=== PATIENT | female | born 1955 | race African-American/Black ===

== ENCOUNTER 2020-03-27 15:36 | Inpatient (IN) ==
[2020-03-27] MEDS ORDERED: SODIUM CHLORIDE 0.9% 500 ML IV STA (16:54)
[2020-03-27 17:53] LABS: Basophils % 0.7 % (0.0-0.8); Eosinophils # 0.1 10*3/uL (0.0-0.87); Hematocrit 24.8 VOL% (35.7-47.0); Hemoglobin 8.6 GM/DL (12.0-16.0); Lymphocytes # 1.7 10*3/uL (1.4-4.0); Lymphocytes % 56.3 % (21.3-54.2); Mean Corpuscular HGB Conc 34.7 GM/DL (32-36); Mean Corpuscular Volume 96.1 FL (87-102); Mean Platelet Volume 9.9 FL (9.6-12.0); Monocytes % 7.9 % (1.7-12.7); Neutrophils % 33.1 % (38.7-73.9); Platelet Count 104 T/CUMM (130-400); Red Blood Count 2.58 MC/CUMM (3.8-5.5); Red Cell Distribution Width 12.8 % (9.3-17.3)
[2020-03-27 18:20] LABS: Eosinophils 4 % (0-10); Lymphocytes 59 % (20-55); Platelet Estimate Adequate; Poikilocytosis Slight; Segmented Neutrophils 34 % (50-85); Target Cells Slight; Total Cells Counted 100
[2020-03-27 18:36] LABS: Albumin 2.9 G/DL (3.4-5.0); Bilirubin,Total 0.5 MG/DL (0.2-1.0); Calcium 7.7 MG/DL (8.5-10.1); Osmolality,Calculated 293.7 MOS/KG (273-304); Total Protein 6.4 G/DL (6.4-8.3)
[2020-03-27 18:40] LABS: Troponin I < 0.015 NG/ML (0.00-0.045)
[2020-03-27 19:24] LABS: Bilirubin,Urine Negative (Negative); Blood, Urine Negative (Negative); Glucose,Urine (UA) Negative (Negative); Ketones,Urine Negative (Negative); Mucus,Urine Occasional /LPF (Occasional); Nitrite,Urine Negative (Negative); Protein,Urine Negative; Urine Appearance CLEAR (Clear); Urine Color Yellow (Yellow); Urine Specific Gravity 1.009 (1.001-1.035); Urine Urobilinogen < 2.0 EU/DL (0.2-1.0)
[2020-03-27] MEDS ORDERED: GLUCAGON 1 MG VIAL IM PRN (20:24)
[2020-03-27] MEDS ORDERED: ACETAMINOPHEN 325 MG TABLET PO PRN (20:24)
[2020-03-27] MEDS ORDERED: DEXTROSE 50% 25 GM/50 ML VIAL IV PRN (20:24)
[2020-03-27] MEDS: PIPERACILLIN/TAZOBACTAM 3.375 MG in SODIUM CHLORIDE 0.9% 100 ML IV SCH (22:21)
[2020-03-27] MEDS: oxyCODONE/ACETAMINOPHEN 5-325 MG TABLET PO PRN (22:22)
[2020-03-27] MEDS: DEXTROSE 5% NACL 0.9% 1,000 ML IV SCH (22:30)
[2020-03-28 05:42] LABS: Calcium 6.8 MG/DL (8.5-10.1); Osmolality,Calculated 292.5 MOS/KG (273-304)
[2020-03-28 05:46] LABS: % Iron Saturation 46.8 % (18-50); Ferritin 230.4 ng/ml (8-252)
[2020-03-28 05:53] LABS: Folate 5.8 NG/ML (5.4-24.0); Vitamin B12 > 2000 PG/ML (211-911)
[2020-03-28 06:20] LABS: Basophils % 0.7 % (0.0-0.8); Eosinophils # 0.1 10*3/uL (0.0-0.87); Eosinophils % 2.3 % (0.00-10.9); Hematocrit 24.7 VOL% (35.7-47.0); Hemoglobin 8.5 GM/DL (12.0-16.0); Immature Granulocytes % 0.3 %; Immature Granulocytes Absolute 0.01 #; Lymphocytes # 1.7 10*3/uL (1.4-4.0); Lymphocytes % 55.9 % (21.3-54.2); Mean Corpuscular HGB Conc 34.4 GM/DL (32-36); Mean Corpuscular Volume 97.2 FL (87-102); Mean Platelet Volume 10.3 FL (9.6-12.0); Monocytes % 9.4 % (1.7-12.7); Neutrophils % 31.4 % (38.7-73.9); Red Blood Count 2.54 MC/CUMM (3.8-5.5); Red Cell Distribution Width 12.9 % (9.3-17.3)
[2020-03-28 06:27] LABS: Platelet Count 93 T/CUMM (130-400)
[2020-03-28 06:50] LABS: Atypical Lymphocytes Few; Eosinophils 4 % (0-10); Lymphocytes 57 % (20-55); Segmented Neutrophils 35 % (50-85); Total Cells Counted 100
[2020-03-28 06:51] LABS: Hypochromasia 1+; Microcytosis Slight; Ovalocytes Slight; Target Cells Slight
[2020-03-28 06:52] LABS: Platelet Estimate Decreased
[2020-03-28 07:30] LABS: Sedimentation Rate-Westergren 11 MM/HR (0-30)
[2020-03-28] MEDS: PANTOPRAZOLE 40 MG TABLET PO SCH (09:08)
[2020-03-28] MEDS: oxyCODONE/ACETAMINOPHEN 5-325 MG TABLET PO PRN ×2 (09:08→19:25)
[2020-03-28] MEDS: PIPERACILLIN/TAZOBACTAM 3,375 MG in SODIUM CHLORIDE 0.9% 100 ML IV SCH ×2 (09:14→20:51)
[2020-03-28] MEDS: PIPERACILLIN/TAZOBACTAM 3.375 MG in SODIUM CHLORIDE 0.9% 100 ML IV SCH (09:18)
[2020-03-28] MEDS: FOLIC ACID 1 MG TABLET PO SCH ×2 (10:13→20:52)
[2020-03-28] MEDS: MULTIVITAMIN (CENTRUM) TABLET PO SCH (14:01)
[2020-03-28] MEDS: ONDANSETRON 4 MG/2 ML VIAL IV PRN (16:25)
[2020-03-28] MEDS: DEXTROSE 5% NACL 0.9% 1,000 ML IV SCH ×2 (19:00)
[2020-03-28] MEDS: ZALEPLON 5 MG CAPSULE PO PRN (20:51)
[2020-03-28] MEDS: traZODone 50 MG TABLET PO PRN (20:51)
[2020-03-28] MEDS: COLESTIPOL 1 GM TABLET PO SCH (20:52)
[2020-03-29 08:26] LABS: Calcium 6.9 MG/DL (8.5-10.1); Osmolality,Calculated 291.7 MOS/KG (273-304)
[2020-03-29] MEDS ORDERED: SODIUM CHLORIDE 0.9% 500 ML IV SCH ×2 (09:00→13:30)
[2020-03-29] MEDS: FOLIC ACID 1 MG TABLET PO SCH ×2 (09:09→21:05)
[2020-03-29] MEDS: oxyCODONE/ACETAMINOPHEN 5-325 MG TABLET PO PRN ×2 (09:10→21:04)
[2020-03-29] MEDS: PANTOPRAZOLE 40 MG TABLET PO SCH (09:10)
[2020-03-29] MEDS: COLESTIPOL 1 GM TABLET PO SCH ×2 (09:10→21:04)
[2020-03-29] MEDS: MULTIVITAMIN (CENTRUM) TABLET PO SCH (09:10)
[2020-03-29] MEDS: fentaNYL 12 MCG/HR PATCH TRANSDERM SCH (16:31)
[2020-03-29] MEDS: DEXTROSE 5% NACL 0.9% 1,000 ML IV SCH (19:09)
[2020-03-29] MEDS: ZALEPLON 5 MG CAPSULE PO PRN (21:04)
[2020-03-29] MEDS: traZODone 50 MG TABLET PO PRN (21:04)
[2020-03-30] MEDS: DEXTROSE 5% NACL 0.9% 1,000 ML IV SCH ×2 (06:27→10:01)
[2020-03-30 06:50] LABS: Immunoglobulin A (Chem) 74 MG/DL (70-400); Immunoglobulin G (Chem) 1270 MG/DL (700-1600)
[2020-03-30 06:51] LABS: Immunoglobulin M (Chem) 35 MG/DL (40-230)
[2020-03-30] MEDS: PANTOPRAZOLE 40 MG TABLET PO SCH (08:29)
[2020-03-30] MEDS: FOLIC ACID 1 MG TABLET PO SCH ×2 (08:29→21:56)
[2020-03-30] MEDS: COLESTIPOL 1 GM TABLET PO SCH (08:29)
[2020-03-30] MEDS: MULTIVITAMIN (CENTRUM) TABLET PO SCH (08:29)
[2020-03-30 09:45] LABS: Hemoglobin A1 (Alkaline) 97.5 % (96.5-98.5); Hemoglobin A2 (Alkaline) 2.5 % (1.5-3.5)
[2020-03-30 10:14] LABS: Albumin (SPE) 3.2 G/DL (3.2-5.3); Albumin (SPE) Rel % 63.4 %; Alpha 1 (SPE) 0.1 G/DL (0.1-0.4); Alpha 1 (SPE) Rel % 1.9 %; Alpha 2 (SPE) 0.4 G/DL (0.4-1.0); Alpha 2 (SPE) Rel % 8.6 %; Beta (SPE) 0.3 G/DL (0.5-1.1); Beta (SPE) Rel % 5.6 %; Gamma (SPE) Rel % 20.5 %
[2020-03-30] MEDS: ONDANSETRON 4 MG/2 ML VIAL IV PRN ×3 (12:16→22:38)
[2020-03-30 13:04] LABS: Basophils % 0.8 % (0.0-0.8); Eosinophils # 0.1 10*3/uL (0.0-0.87); Eosinophils % 1.9 % (0.00-10.9); Hematocrit 29.1 VOL% (35.7-47.0); Immature Granulocytes % 0.4 %; Immature Granulocytes Absolute 0.01 #; Lymphocytes # 1.2 10*3/uL (1.4-4.0); Lymphocytes % 46.4 % (21.3-54.2); Mean Corpuscular HGB Conc 30.9 GM/DL (32-36); Mean Corpuscular Volume 105.1 FL (87-102); Mean Platelet Volume 10.7 FL (9.6-12.0); Neutrophils % 42.5 % (38.7-73.9); Platelet Count 85 T/CUMM (130-400); Red Blood Count 2.77 MC/CUMM (3.8-5.5); Red Cell Distribution Width 13.5 % (9.3-17.3); White Blood Count 2.6 T/CUMM (4-12)
[2020-03-30] MEDS: oxyCODONE/ACETAMINOPHEN 5-325 MG TABLET PO PRN (13:11)
[2020-03-30] MEDS: BISACODYL 5 MG TABLET PO SCH ×2 (17:01→22:40)
[2020-03-30] MEDS ORDERED: POLYETHYLENE GLYCOL 3350/ELECTROLYTES 4,000 ML BOTTLE PO ONE (18:00)
[2020-03-30] MEDS ORDERED: MAGNESIUM CITRATE 300 ML BOTTLE PO ONE (21:00)
[2020-03-31 05:57] LABS: Basophils % 0.3 % (0.0-0.8); Eosinophils % 0.5 % (0.00-10.9); Hematocrit 23.7 VOL% (35.7-47.0); Hemoglobin 8.1 GM/DL (12.0-16.0); Immature Granulocytes % 0.3 %; Immature Granulocytes Absolute 0.01 #; Lymphocytes # 1.1 10*3/uL (1.4-4.0); Mean Corpuscular HGB Conc 34.2 GM/DL (32-36); Mean Corpuscular Volume 96.7 FL (87-102); Monocytes % 8.4 % (1.7-12.7); Neutrophils % 59.5 % (38.7-73.9); Red Blood Count 2.45 MC/CUMM (3.8-5.5); White Blood Count 3.7 T/CUMM (4-12)
[2020-03-31 06:01] LABS: Platelet Count 75 T/CUMM (130-400)
[2020-03-31 06:13] LABS: Calcium 6.7 MG/DL (8.5-10.1); Osmolality,Calculated 302.7 MOS/KG (273-304)
[2020-03-31 06:21] LABS: Hypochromasia Slight; Platelet Estimate Decreased
[2020-03-31] MEDS: DEXTROSE 5% NACL 0.9% 1,000 ML IV SCH ×2 (06:34→18:27)
[2020-03-31] MEDS: BISACODYL 5 MG TABLET PO SCH (06:34)
[2020-03-31] MEDS: FOLIC ACID 1 MG TABLET PO SCH ×2 (08:02→20:32)
[2020-03-31] MEDS: MULTIVITAMIN (CENTRUM) TABLET PO SCH (08:02)
[2020-03-31] MEDS: SODIUM CHLORIDE 0.9% 500 ML IV SCH (08:10)
[2020-03-31] MEDS ORDERED: propofoL 200 MG/20 ML VIAL IV ONE (09:00)
[2020-03-31] MEDS ORDERED: LIDOCAINE 2% 5 ML VIAL ONE (09:00)
[2020-03-31] MEDS: oxyCODONE/ACETAMINOPHEN 5-325 MG TABLET PO PRN ×2 (11:09→18:35)
[2020-03-31 14:06] LABS: Antinuclear Ab, S 0.3 U
[2020-03-31] MEDS: ZALEPLON 5 MG CAPSULE PO PRN (23:42)
[2020-03-31] MEDS: traZODone 50 MG TABLET PO PRN (23:42)
[2020-04-01 07:20] LABS: Calcium 7.2 MG/DL (8.5-10.1)
[2020-04-01] MEDS: DEXTROSE 5% NACL 0.9% 1,000 ML IV SCH (07:34)
[2020-04-01 08:20] LABS: Basophils % 0.3 % (0.0-0.8); Hematocrit 21.2 VOL% (35.7-47.0); Hemoglobin 7.4 GM/DL (12.0-16.0); Immature Granulocytes % 0.3 %; Immature Granulocytes Absolute 0.01 #; Lymphocytes # 1.1 10*3/uL (1.4-4.0); Lymphocytes % 26.5 % (21.3-54.2); Mean Corpuscular HGB Conc 34.9 GM/DL (32-36); Mean Corpuscular Volume 96.4 FL (87-102); Mean Platelet Volume 10.9 FL (9.6-12.0); Monocytes % 6.3 % (1.7-12.7); Neutrophils % 65.6 % (38.7-73.9); Platelet Count 75 T/CUMM (130-400)
[2020-04-01 08:43] LABS: Burr Cells Slight; Hypochromasia 2+; Microcytosis 1+; Ovalocytes Slight; Platelet Estimate Decreased
[2020-04-01] MEDS ORDERED: SODIUM CHLORIDE 0.9% 1,000 ML IV PRN (12:19)
[2020-04-01 12:24] LABS: Immuno Free Light Chain Kappa 11.69 MG/DL (0.33-1.94); Immuno Free Light Chain Lambda 4.77 MG/DL (0.57-2.63); Immuno Free Light Chain Ratio 2.45 MG/DL (0.26-1.65)
[2020-04-01 12:50] LABS: Hematocrit 26.5 VOL% (35.7-47.0)
[2020-04-01 12:51] LABS: Hemoglobin 9.2 GM/DL (12.0-16.0)
[2020-04-01] MEDS: fentaNYL 12 MCG/HR PATCH TRANSDERM SCH (14:00)
[2020-04-01] MEDS: VANCOMYCIN 50 MG/ML 60 ML/BOTTLE PO SCH ×2 (14:04→21:23)
[2020-04-01] MEDS: MULTIVITAMIN (CENTRUM) TABLET PO SCH (14:05)
[2020-04-01] MEDS: FOLIC ACID 1 MG TABLET PO SCH ×2 (14:05→21:22)
[2020-04-01] MEDS: oxyCODONE/ACETAMINOPHEN 5-325 MG TABLET PO PRN ×2 (14:10→22:53)
[2020-04-01 18:27] LABS: Hematocrit 23.3 VOL% (35.7-47.0)
[2020-04-01 20:24] LABS: Hematocrit 20.4 VOL% (35.7-47.0); Hemoglobin 7.1 GM/DL (12.0-16.0)
[2020-04-02 01:21] LABS: Hemoglobin 7.5 GM/DL (12.0-16.0)
[2020-04-02] MEDS: VANCOMYCIN 50 MG/ML 60 ML/BOTTLE PO SCH ×4 (03:07→21:30)
[2020-04-02] MEDS: DEXTROSE 5% NACL 0.9% 1,000 ML IV SCH ×2 (05:30→18:11)
[2020-04-02 07:14] LABS: Hematocrit 31.4 VOL% (35.7-47.0); Hemoglobin 10.8 GM/DL (12.0-16.0)
[2020-04-02 07:29] LABS: PT Patient Result 11.1 SECS (9.8-11.9)
[2020-04-02] MEDS: oxyCODONE/ACETAMINOPHEN 5-325 MG TABLET PO PRN ×2 (07:48→15:47)
[2020-04-02] MEDS: ONDANSETRON 4 MG/2 ML VIAL IV PRN (07:59)
[2020-04-02] MEDS: FOLIC ACID 1 MG TABLET PO SCH ×2 (08:37→21:33)
[2020-04-02] MEDS: MULTIVITAMIN (CENTRUM) TABLET PO SCH (08:37)
[2020-04-02 08:55] LABS: Hematocrit 33.6 VOL% (35.7-47.0); Hemoglobin 11.4 GM/DL (12.0-16.0)
[2020-04-02] MEDS: SODIUM CHLORIDE 0.9% 500 ML IV SCH (10:37)
[2020-04-02 10:45] LABS: Collection duration of stool Random h; Total Weight of Stool 14 g
[2020-04-02 11:26] LABS: Homocysteine 30.7 nmol/mL (5.6-15.6)
[2020-04-02] MEDS: ZALEPLON 5 MG CAPSULE PO PRN (21:31)
[2020-04-03 01:26] LABS: IgA Serum (MAYO) 81 mg/dL (61 - 356)
[2020-04-03] MEDS: oxyCODONE/ACETAMINOPHEN 5-325 MG TABLET PO PRN ×3 (03:07→20:20)
[2020-04-03] MEDS: VANCOMYCIN 50 MG/ML 60 ML/BOTTLE PO SCH ×4 (03:10→20:21)
[2020-04-03] MEDS: DEXTROSE 5% NACL 0.9% 1,000 ML IV SCH (03:23)
[2020-04-03 06:57] LABS: Basophils % 0.3 % (0.0-0.8); Eosinophils # 0.1 10*3/uL (0.0-0.87); Eosinophils % 0.7 % (0.00-10.9); Hemoglobin 11.5 GM/DL (12.0-16.0); Immature Granulocytes % 0.4 %; Immature Granulocytes Absolute 0.03 #; Lymphocytes # 1.1 10*3/uL (1.4-4.0); Mean Corpuscular HGB Conc 34.8 GM/DL (32-36); Mean Corpuscular Volume 91.4 FL (87-102); Mean Platelet Volume 10.8 FL (9.6-12.0); Monocytes % 5.6 % (1.7-12.7); Platelet Count 82 T/CUMM (130-400); Red Blood Count 3.61 MC/CUMM (3.8-5.5); Red Cell Distribution Width 14.8 % (9.3-17.3); White Blood Count 6.8 T/CUMM (4-12)
[2020-04-03 07:15] LABS: Hypochromasia 1+; Lymphocytes 17 % (20-55); Microcytosis Slight; Platelet Estimate Decreased; Segmented Neutrophils 81 % (50-85); Total Cells Counted 100
[2020-04-03] MEDS: MULTIVITAMIN (CENTRUM) TABLET PO SCH (08:11)
[2020-04-03] MEDS: FOLIC ACID 1 MG TABLET PO SCH ×2 (08:11→20:20)
[2020-04-03 10:34] LABS: Calcium 7.3 MG/DL (8.5-10.1)
[2020-04-04] MEDS: VANCOMYCIN 50 MG/ML 60 ML/BOTTLE PO SCH ×4 (03:26→20:39)
[2020-04-04] MEDS: DEXTROSE 5% NACL 0.9% 1,000 ML IV SCH ×4 (04:19→17:05)
[2020-04-04] MEDS: oxyCODONE/ACETAMINOPHEN 5-325 MG TABLET PO PRN ×2 (05:30→14:01)
[2020-04-04] MEDS: fentaNYL 12 MCG/HR PATCH TRANSDERM SCH (08:40)
[2020-04-04] MEDS: FOLIC ACID 1 MG TABLET PO SCH ×2 (08:40→20:39)
[2020-04-04] MEDS: MULTIVITAMIN (CENTRUM) TABLET PO SCH (08:40)
[2020-04-04 09:17] LABS: Basophils % 0.2 % (0.0-0.8); Eosinophils # 0.1 10*3/uL (0.0-0.87); Eosinophils % 0.9 % (0.00-10.9); Hematocrit 34.6 VOL% (35.7-47.0); Immature Granulocytes % 0.3 %; Immature Granulocytes Absolute 0.02 #; Lymphocytes # 0.8 10*3/uL (1.4-4.0); Lymphocytes % 12.7 % (21.3-54.2); Mean Corpuscular HGB Conc 34.7 GM/DL (32-36); Mean Corpuscular Volume 91.5 FL (87-102); Mean Platelet Volume 10.2 FL (9.6-12.0); Monocytes % 4.3 % (1.7-12.7); Neutrophils % 81.6 % (38.7-73.9); Platelet Count 73 T/CUMM (130-400); Red Blood Count 3.78 MC/CUMM (3.8-5.5); White Blood Count 6.5 T/CUMM (4-12)
[2020-04-04 09:37] LABS: Calcium 7.2 MG/DL (8.5-10.1); Osmolality,Calculated 296.1 MOS/KG (273-304)
[2020-04-04] MEDS ORDERED: LEVOFLOXACIN 250 MG TABLET PO SCH (11:00)
[2020-04-04 12:39] LABS: Atypical Lymphocytes Few; Band Neutrophils 1 % (0-10); Lymphocytes 11 % (20-55); Platelet Estimate Decreased; Polychromasia Slight; Reactive Lymphocytes Few; Schistocytes Slight; Segmented Neutrophils 81 % (50-85); Total Cells Counted 100
[2020-04-05] MEDS: ZALEPLON 5 MG CAPSULE PO PRN ×2 (02:07→21:07)
[2020-04-05] MEDS: oxyCODONE/ACETAMINOPHEN 5-325 MG TABLET PO PRN ×2 (02:07→15:25)
[2020-04-05] MEDS: VANCOMYCIN 50 MG/ML 60 ML/BOTTLE PO SCH ×4 (02:22→21:08)
[2020-04-05] MEDS: DEXTROSE 5% NACL 0.9% 1,000 ML IV SCH ×3 (04:13→20:48)
[2020-04-05 05:31] LABS: Osmolality,Calculated 337.6 MOS/KG (273-304)
[2020-04-05 05:44] LABS: Calcium 5.7 MG/DL (8.5-10.1)
[2020-04-05 08:18] LABS: Calcium 7.8 MG/DL (8.5-10.1)
[2020-04-05] MEDS: FOLIC ACID 1 MG TABLET PO SCH ×2 (09:35→21:07)
[2020-04-05] MEDS: MULTIVITAMIN (CENTRUM) TABLET PO SCH (09:35)
[2020-04-05] MEDS ORDERED: POTASSIUM CHLORIDE 20 MEQ TABLET PO SCH (11:00)
[2020-04-05] MEDS: SODIUM BICARBONATE 650 MG TABLET PO SCH ×2 (15:27→21:07)
[2020-04-06] MEDS: VANCOMYCIN 50 MG/ML 60 ML/BOTTLE PO SCH ×4 (02:37→20:29)
[2020-04-06] MEDS: oxyCODONE/ACETAMINOPHEN 5-325 MG TABLET PO PRN ×3 (02:44→20:27)
[2020-04-06 05:56] LABS: Basophils % 0.4 % (0.0-0.8); Eosinophils # 0.1 10*3/uL (0.0-0.87); Eosinophils % 1.7 % (0.00-10.9); Hematocrit 30.6 VOL% (35.7-47.0); Hemoglobin 10.7 GM/DL (12.0-16.0); Immature Granulocytes % 0.6 %; Immature Granulocytes Absolute 0.03 #; Lymphocytes # 1.1 10*3/uL (1.4-4.0); Lymphocytes % 20.6 % (21.3-54.2); Mean Corpuscular Volume 91.3 FL (87-102); Mean Platelet Volume 10.6 FL (9.6-12.0); Neutrophils % 70.7 % (38.7-73.9); Platelet Count 61 T/CUMM (130-400); Red Blood Count 3.35 MC/CUMM (3.8-5.5); Red Cell Distribution Width 14.6 % (9.3-17.3); White Blood Count 5.2 T/CUMM (4-12)
[2020-04-06 06:15] LABS: Burr Cells Slight; Microcytosis Slight; Ovalocytes Slight; Platelet Estimate Decreased
[2020-04-06 06:53] LABS: Calcium 7.4 MG/DL (8.5-10.1)
[2020-04-06] MEDS: POTASSIUM CHLORIDE 20 MEQ TABLET PO SCH (09:22)
[2020-04-06] MEDS: MULTIVITAMIN (CENTRUM) TABLET PO SCH (09:22)
[2020-04-06] MEDS: SODIUM BICARBONATE 650 MG TABLET PO SCH ×3 (09:22→20:35)
[2020-04-06] MEDS: FOLIC ACID 1 MG TABLET PO SCH ×2 (09:22→20:27)
[2020-04-06] MEDS: MIRTAZAPINE 15 MG TABLET PO SCH (20:27)
[2020-04-07] MEDS: ZALEPLON 5 MG CAPSULE PO PRN ×2 (01:26→21:28)
[2020-04-07] MEDS: VANCOMYCIN 50 MG/ML 60 ML/BOTTLE PO SCH ×4 (02:12→21:29)
[2020-04-07 05:39] LABS: Basophils % 0.4 % (0.0-0.8); Eosinophils # 0.1 10*3/uL (0.0-0.87); Eosinophils % 2.7 % (0.00-10.9); Hematocrit 28.8 VOL% (35.7-47.0); Hemoglobin 10.4 GM/DL (12.0-16.0); Immature Granulocytes % 0.4 %; Immature Granulocytes Absolute 0.02 #; Lymphocytes # 1.9 10*3/uL (1.4-4.0); Lymphocytes % 36.2 % (21.3-54.2); Mean Corpuscular HGB Conc 36.1 GM/DL (32-36); Mean Corpuscular Volume 90.6 FL (87-102); Mean Platelet Volume 9.9 FL (9.6-12.0); Monocytes % 7.6 % (1.7-12.7); Neutrophils % 52.7 % (38.7-73.9); Platelet Count 72 T/CUMM (130-400); Red Blood Count 3.18 MC/CUMM (3.8-5.5); Red Cell Distribution Width 14.6 % (9.3-17.3); White Blood Count 5.1 T/CUMM (4-12)
[2020-04-07 05:59] LABS: Burr Cells Slight; Ovalocytes Slight; Platelet Estimate Decreased
[2020-04-07 06:00] LABS: Microcytosis Slight
[2020-04-07 06:03] LABS: Albumin 1.9 G/DL (3.4-5.0); Bilirubin,Total 0.4 MG/DL (0.2-1.0); Calcium 7.1 MG/DL (8.5-10.1); Total Protein 5.1 G/DL (6.4-8.3)
[2020-04-07] MEDS: ONDANSETRON 4 MG/2 ML VIAL IV PRN (08:33)
[2020-04-07] MEDS ORDERED: SODIUM BICARB INJ 100 MEQ in STERILE WATER INJ 1,000 ML IV SCH (09:00)
[2020-04-07] MEDS: POTASSIUM CHLORIDE 20 MEQ TABLET PO SCH (09:22)
[2020-04-07] MEDS: MULTIVITAMIN (CENTRUM) TABLET PO SCH (09:22)
[2020-04-07] MEDS: FOLIC ACID 1 MG TABLET PO SCH ×2 (09:22→21:28)
[2020-04-07] MEDS: oxyCODONE/ACETAMINOPHEN 5-325 MG TABLET PO PRN ×2 (09:22→17:10)
[2020-04-07] MEDS: SODIUM BICARBONATE 650 MG TABLET PO SCH ×2 (09:22→15:20)
[2020-04-07] MEDS ORDERED: ALBUMIN 25% 50 GM in PREMIX 1 EACH IV ONE (09:23)
[2020-04-07] MEDS: DEXTROSE 5% NACL 0.9% 1,000 ML IV SCH (14:25)
[2020-04-07 18:30] LABS: RBC,Peritoneal Fluid 2186 T/CUMM
[2020-04-07 18:39] LABS: Glucose,Peritoneal Fluid 84 MG/DL; LDH,Peritoneal Fluid 71 U/L
[2020-04-07 18:45] LABS: Neutrophils,Peritoneal Fluid 19 %
[2020-04-07] MEDS: MIRTAZAPINE 15 MG TABLET PO SCH (21:28)
[2020-04-07] MEDS: ALBUMIN 25% 25 GM in PREMIX 1 EACH IV SCH (22:55)
[2020-04-08] MEDS: VANCOMYCIN 50 MG/ML 60 ML/BOTTLE PO SCH ×4 (02:34→20:09)
[2020-04-08] MEDS: ALBUMIN 25% 25 GM in PREMIX 1 EACH IV SCH ×3 (07:00→23:09)
[2020-04-08 08:58] LABS: Hepatitis B Core IgM Quant 0.08 Index; Hepatitis B Surface Ag Quant < 0.10 Index; Hepatitis B Surface Ag Result Negative (Negative); Hepatitis C Virus Ab Quant > 11.00 Index; Hepatitis C Virus Ab Result Positive (Negative)
[2020-04-08] MEDS: MULTIVITAMIN (CENTRUM) TABLET PO SCH (10:06)
[2020-04-08] MEDS: FOLIC ACID 1 MG TABLET PO SCH ×2 (10:06→20:09)
[2020-04-08] MEDS: POTASSIUM CHLORIDE 20 MEQ TABLET PO SCH (10:06)
[2020-04-08] MEDS: ONDANSETRON 4 MG/2 ML VIAL IV PRN ×2 (10:09→17:35)
[2020-04-08] MEDS: oxyCODONE/ACETAMINOPHEN 5-325 MG TABLET PO PRN (11:44)
[2020-04-08] MEDS ORDERED: FUROSEMIDE 40 MG/4 ML VIAL IV ONE (17:59)
[2020-04-08] MEDS ORDERED: MIRTAZAPINE 30 MG TABLET PO SCH (21:00)
[2020-04-09] MEDS: VANCOMYCIN 50 MG/ML 60 ML/BOTTLE PO SCH ×2 (02:19→08:33)
[2020-04-09] MEDS: ALBUMIN 25% 25 GM in PREMIX 1 EACH IV SCH (06:13)
[2020-04-09] MEDS: oxyCODONE/ACETAMINOPHEN 5-325 MG TABLET PO PRN (07:18)
[2020-04-09 07:47] VITALS: BP 116/74
[2020-04-09 08:32] LABS: Basophils % 0.4 % (0.0-0.8); Eosinophils # 0.1 10*3/uL (0.0-0.87); Eosinophils % 2.6 % (0.00-10.9); Hematocrit 26.3 VOL% (35.7-47.0); Hemoglobin 9.1 GM/DL (12.0-16.0); Immature Granulocytes % 0.4 %; Immature Granulocytes Absolute 0.02 #; Lymphocytes # 1.6 10*3/uL (1.4-4.0); Lymphocytes % 32.4 % (21.3-54.2); Mean Corpuscular HGB Conc 34.6 GM/DL (32-36); Mean Corpuscular Volume 91.3 FL (87-102); Monocytes % 6.2 % (1.7-12.7); Red Blood Count 2.88 MC/CUMM (3.8-5.5); Red Cell Distribution Width 14.8 % (9.3-17.3)
[2020-04-09] MEDS: POTASSIUM CHLORIDE 20 MEQ TABLET PO SCH (08:33)
[2020-04-09] MEDS: FOLIC ACID 1 MG TABLET PO SCH (08:33)
[2020-04-09] MEDS: MULTIVITAMIN (CENTRUM) TABLET PO SCH (08:33)
[2020-04-09 08:34] LABS: Platelet Count 70 T/CUMM (130-400)
[2020-04-09 08:51] LABS: Alanine Aminotransferase < 9 U/L (13-56); Albumin 3.9 G/DL (3.4-5.0); Alkaline Phosphatase 46 U/L (45-117); Aspartate Amino Transferase 19 U/L (0-37); Blood Urea Nitrogen 30 MG/DL (7-18); Calcium 7.8 MG/DL (8.5-10.1); Estimated Glom Filtration Rate 15 ML/MIN; Glucose 59 MG/DL (74-106); Hypochromasia 1+; Microcytosis Slight; Osmolality,Calculated 289.8 MOS/KG (273-304); Target Cells Slight
[2020-04-09 08:52] LABS: Platelet Estimate Decreased
[2020-04-09 09:33] LABS: Tissue Transglutaminase IgA Ab < 1.2 U/mL
[2020-04-09 22:58] LABS: IgA Serum (MAYO) 89 mg/dL (61 - 356)
[2020-04-17 10:56] LABS: Tissue Transglutaminase IgA Ab < 1.2 U/mL
== END 2020-04-09 11:31 | disposition home health service (06) | DRG 391 ==
LOC: N.EDINP 15:36 → N.ED 15:36 → SUATTDRO 19:51 → N.5E 20:22 → SUATTDRO 03-29 14:24
PROVIDERS: ADMIT Internal Medicine Geriatric Medicine; ATTEND Internal Medicine

== ENCOUNTER 2020-04-24 07:58 | Observation (INO) ==
[2020-04-24] MEDS ORDERED: LOPERAMIDE 2 MG CAPSULE PO STA (08:40)
[2020-04-24] MEDS ORDERED: SODIUM CHLORIDE 0.9% 500 ML IV STA (08:40)
[2020-04-24 09:01] LABS: Basophils % 0.8 % (0.0-0.8); Eosinophils # 0.1 10*3/uL (0.0-0.87); Eosinophils % 2.2 % (0.00-10.9); Hematocrit 29.3 VOL% (35.7-47.0); Hemoglobin 9.9 GM/DL (12.0-16.0); Immature Granulocytes % 0.3 %; Immature Granulocytes Absolute 0.01 #; Lymphocytes # 1.4 10*3/uL (1.4-4.0); Mean Corpuscular HGB Conc 33.8 GM/DL (32-36); Mean Corpuscular Volume 93.6 FL (87-102); Mean Platelet Volume 10.3 FL (9.6-12.0); Monocytes % 7.5 % (1.7-12.7); Neutrophils % 51.2 % (38.7-73.9); Platelet Count 129 T/CUMM (130-400); Red Blood Count 3.13 MC/CUMM (3.8-5.5); Red Cell Distribution Width 17.2 % (9.3-17.3); White Blood Count 3.7 T/CUMM (4-12)
[2020-04-24 09:09] LABS: Albumin 2.9 G/DL (3.4-5.0); Bilirubin,Total 0.4 MG/DL (0.2-1.0); Calcium 7.5 MG/DL (8.5-10.1); Osmolality,Calculated 286.5 MOS/KG (273-304); Total Protein 6.2 G/DL (6.4-8.3)
[2020-04-24] MEDS ORDERED: ONDANSETRON 4 MG/2 ML VIAL ONE (09:38)
[2020-04-24] MEDS ORDERED: ONDANSETRON 4 MG/2 ML VIAL IV STA (09:41)
[2020-04-24] MEDS ORDERED: DEXTROSE 50% 25 GM/50 ML VIAL IV PRN (10:15)
[2020-04-24] MEDS ORDERED: ONDANSETRON 4 MG/2 ML VIAL IV PRN (10:15)
[2020-04-24] MEDS ORDERED: GLUCAGON 1 MG VIAL IM PRN (10:15)
[2020-04-24] MEDS ORDERED: MORPHINE 4 MG/1 ML VIAL IV PRN (10:15)
[2020-04-24] MEDS ORDERED: ACETAMINOPHEN 325 MG TABLET PO PRN (10:15)
[2020-04-24] MEDS ORDERED: ONDANSETRON 4 MG TABLET PO PRN (10:18)
[2020-04-24] MEDS ORDERED: MUPIROCIN 2% OINT 22 GM TUBE TOP PRN (10:18)
[2020-04-24] MEDS ORDERED: TRIAMCINOLONE 0.1% OINT 15 GM TUBE TOP PRN (10:18)
[2020-04-24] MEDS ORDERED: NYSTATIN CREAM 15 GM TUBE TOP PRN (10:18)
[2020-04-24] MEDS ORDERED: fentaNYL 25 MCG/HR PATCH TRANSDERM SCH (12:00)
[2020-04-24] MEDS ORDERED: OLOPATADINE 0.1% OPH SOLN 5 ML BOTTLE BOTH EYES PRN (12:04)
[2020-04-24] MEDS ORDERED: traZODone 50 MG TABLET PO PRN (12:06)
[2020-04-24] MEDS: oxyCODONE/ACETAMINOPHEN 5-325 MG TABLET PO PRN ×2 (12:47→22:01)
[2020-04-24] MEDS: PANTOPRAZOLE 40 MG TABLET PO SCH (12:47)
[2020-04-24] MEDS: SODIUM BICARB INJ 50 MEQ in DEXTROSE 5% NACL 0.45% 1,000 ML IV SCH ×2 (12:47→22:00)
[2020-04-24] MEDS ORDERED: metroNIDAZOLE INJ 500 MG in PREMIX 1 EACH IV SCH (13:00)
[2020-04-24] MEDS: INSULIN REGULAR 100 UNIT/ML SUBCUT SCH ×3 (13:17→22:03)
[2020-04-24] MEDS ORDERED: LACTATED RINGERS 1,000 ML IV SCH (14:30)
[2020-04-24] MEDS: VANCOMYCIN 50 MG/ML 60 ML/BOTTLE PO SCH (17:52)
[2020-04-24] MEDS ORDERED: MIRTAZAPINE 30 MG TABLET PO SCH (21:00)
[2020-04-24] MEDS: CHOLESTYRAMINE 4 GM PACK PO SCH (22:01)
[2020-04-24] MEDS: MAGNESIUM CHLORIDE 64 MG TABLET PO SCH (22:01)
[2020-04-24] MEDS: APIXABAN 2.5 MG TABLET PO SCH (22:02)
[2020-04-24] MEDS: LACTOBACILLUS ACIDOPHILUS/BULGARICUS CAPLET PO SCH (22:02)
[2020-04-24] MEDS: metroNIDAZOLE 500 MG TABLET PO SCH (22:02)
[2020-04-24] MEDS: RANOLAZINE 500 MG TABLET PO SCH (22:02)
[2020-04-25] MEDS: VANCOMYCIN 50 MG/ML 60 ML/BOTTLE PO SCH ×3 (00:13→13:43)
[2020-04-25 05:26] LABS: Basophils % 0.4 % (0.0-0.8); Eosinophils # 0.1 10*3/uL (0.0-0.87); Eosinophils % 2.6 % (0.00-10.9); Hematocrit 20.6 VOL% (35.7-47.0); Immature Granulocytes % 0.4 %; Immature Granulocytes Absolute 0.01 #; Lymphocytes # 1.4 10*3/uL (1.4-4.0); Lymphocytes % 51.1 % (21.3-54.2); Mean Corpuscular HGB Conc 34.5 GM/DL (32-36); Mean Platelet Volume 10.8 FL (9.6-12.0); Monocytes % 8.8 % (1.7-12.7); Neutrophils % 36.7 % (38.7-73.9); Red Cell Distribution Width 17.1 % (9.3-17.3); White Blood Count 2.7 T/CUMM (4-12)
[2020-04-25 05:29] LABS: Hemoglobin 7.1 GM/DL (12.0-16.0); Platelet Count 86 T/CUMM (130-400); Red Blood Count 2.24 MC/CUMM (3.8-5.5)
[2020-04-25 05:46] LABS: Eosinophils 1 % (0-10); Hypochromasia 2+; Lymphocytes 54 % (20-55); Platelet Estimate Decreased; Segmented Neutrophils 40 % (50-85); Total Cells Counted 100
[2020-04-25 05:47] LABS: Atypical Lymphocytes Few; Calcium 6.3 MG/DL (8.5-10.1); Microcytosis Slight; Osmolality,Calculated 300.3 MOS/KG (273-304)
[2020-04-25] MEDS: SODIUM BICARB INJ 50 MEQ in DEXTROSE 5% NACL 0.45% 1,000 ML IV SCH (05:57)
[2020-04-25] MEDS: metroNIDAZOLE 500 MG TABLET PO SCH ×2 (05:57→15:33)
[2020-04-25] MEDS: oxyCODONE/ACETAMINOPHEN 5-325 MG TABLET PO PRN ×2 (05:58→15:34)
[2020-04-25] MEDS ORDERED: LEVOTHYROXINE 125 MCG TABLET PO SCH (06:30)
[2020-04-25] MEDS ORDERED: SODIUM CHLORIDE 0.9% 1,000 ML IV PRN (07:27)
[2020-04-25] MEDS: INSULIN REGULAR 100 UNIT/ML SUBCUT SCH ×3 (07:27→16:12)
[2020-04-25] MEDS ORDERED: FOLIC ACID 1 MG TABLET PO SCH (09:00)
[2020-04-25] MEDS ORDERED: NEBIVOLOL 5 MG TABLET PO SCH (09:00)
[2020-04-25] MEDS ORDERED: CYANOCOBALAMIN 1000 MCG/1 ML VIAL IM SCH (09:00)
[2020-04-25] MEDS ORDERED: THIAMINE 100 MG TABLET PO SCH (09:00)
[2020-04-25] MEDS ORDERED: ASPIRIN EC 81 MG TABLET PO SCH (09:00)
[2020-04-25] MEDS ORDERED: CHOLECALCIFEROL 1,000 UNIT TABLET PO SCH (09:00)
[2020-04-25] MEDS ORDERED: REXULTI PO SCH (09:00)
[2020-04-25] MEDS ORDERED: FLUTICASONE 50 MCG NASAL SPRAY 16 GM BOTTLE BOTH NARES SCH (09:00)
[2020-04-25] MEDS ORDERED: CALCIUM GLUCONATE 2,000 MG in SODIUM CHLORIDE 0.9% 100 ML IV ONE (09:00)
[2020-04-25] MEDS ORDERED: TRINTELLIX PO SCH (09:00)
[2020-04-25] MEDS: CHOLESTYRAMINE 4 GM PACK PO SCH (09:33)
[2020-04-25] MEDS: LACTOBACILLUS ACIDOPHILUS/BULGARICUS CAPLET PO SCH (09:34)
[2020-04-25] MEDS: MAGNESIUM CHLORIDE 64 MG TABLET PO SCH (09:34)
[2020-04-25] MEDS: PANTOPRAZOLE 40 MG TABLET PO SCH (09:34)
[2020-04-25] MEDS: APIXABAN 2.5 MG TABLET PO SCH (09:34)
[2020-04-25] MEDS: RANOLAZINE 500 MG TABLET PO SCH (09:34)
[2020-04-25 16:31] VITALS: BP 126/83
== END 2020-04-25 16:55 | disposition home or self-care (01) ==
LOC: N.ED 07:58 → N.EDINP 07:58 → N.5E 11:01
PROVIDERS: ADMIT Emergency Medicine; ATTEND Emergency Medicine